=== PATIENT | male | born 1965 | race Caucasian/White ===

== ENCOUNTER → 2017-10-08 | Outpatient (CLI) | payer BC ==
[2017-10-08 07:29] LABS: HCT 41.3 % (39.0-53.0); HGB 13.9 gm/dL (13.0-17.5); MCH 30.4 pg (25.0-35.0); MCHC 33.6 g/dL (31.0-37.0); MCV 90.4 fL (80.0-100.0); Mean Platelet Volume 7.2; Platelet Count 244 k/uL (150-450); RBC 4.57 m/uL (4.30-5.90); RDW 12.7 % (11.5-15.5); WBC 5.4 k/uL (3.8-10.6)
[2017-10-08 09:29] LABS: ALT 36 U/L (21-72); AST 31 U/L (17-59); Alkaline Phosphatase 85 U/L (38-126); Anion Gap 8 mmol/L; Blood Urea Nitrogen 14 mg/dL (9-20); Calcium 8.9 mg/dL (8.4-10.2); Carbon Dioxide 27 mmol/L (22-30); Chloride 105 mmol/L (98-107); Cholesterol 180 mg/dL (<200); Glucose 113 mg/dL (74-99); HDL Cholesterol 51 mg/dL (40-60); LDL Cholesterol,Calculated 104 mg/dL (0-99); Potassium 3.9 mmol/L (3.5-5.1); Sodium 140 mmol/L (137-145); Total Bilirubin 0.9 mg/dL (0.2-1.3); Total Protein 6.7 g/dL (6.3-8.2); Triglycerides 123 mg/dL (<150)
[2017-10-08 09:58] LABS: Prostate Specific Antigen 6.85 ng/mL (0.00-4.00)
[2017-10-08 18:19] LABS: Hemoglobin A1C 5.5 % (4.0-6.0)
== END | disposition home or self-care (01) ==
LOC: LABWHC1 06:38
PROVIDERS: ATTEND Internal Medicine
DX: Z13.228 Encounter for screening for other metabolic disorders (principal); Z13.220 Encounter for screening for lipoid disorders; Z12.5 Encounter for screening for malignant neoplasm of prostate; Z13.0 Encounter for screening for diseases of the blood and blood-forming organs and certain disorders involving the immune mechanism; Z11.59 Encounter for screening for other viral diseases; Z13.1 Encounter for screening for diabetes mellitus; Z13.6 Encounter for screening for cardiovascular disorders
CPT/HCPCS: 36415; 80053; 80061; 83036; 84153; 84443; 85027; 86803

== ENCOUNTER → 2017-11-13 | Outpatient (CLI) | payer BC | END | disposition home or self-care (01) | LOC: LABWHC1 07:58 | PROVIDERS: ATTEND Internal Medicine | DX: R97.20 Elevated prostate specific antigen [PSA] (principal) | CPT/HCPCS: 36415; 84153 ==

== ENCOUNTER 2017-12-29 18:04 | Inpatient (IN) | payer BC ==
[2017-12-29] MEDS ORDERED: ACETAMINOPHEN IV (For NPO) 1,000 MG in EMPTY BAG 1 BAG IVPB STA (18:19)
--- NOTE | 2017-12-29 18:23 | ED ---
Fever HPI - General Stated Complaint: chills,post op infection Time Seen by Provider: 12/29/17 18:15 Source: patient, family, RN notes reviewed - History of Present Illness Initial Comments: This is a 52-year-old male who had a prostate biopsy done yesterday and approximately 12 locations who apparently had 2 episodes of chills earlier today but about one half hour prior to admission started having shakes chills without have a temperature 107. He does not feel well no overt nausea vomiting diarrhea or other symptoms he has had some hematuria but this is expected. He did receive Cipro an injection of antibiotic which at this time is unknown. No other modifying factors at this time he has no chest pain no cough no phlegm production MD Complaint: fever, malaise - Related Data Home Medications Medication Instructions Recorded Confirmed Multivitamins, Thera [Multivitamin 1 tab PO DAILY 12/29/17 12/29/17 (formulary)] Pravastatin Sodium [Pravachol] 20 mg PO HS 12/29/17 12/29/17 Allergies Allergy/AdvReac Type Severity Reaction Status Date / Time Sulfa (Sulfonamide AdvReac Rash/Hives Verified 12/29/17 18:51 Antibiotics) Review of Systems ROS Statement: Those systems with pertinent positive or pertinent negative responses have been documented in the HPI. ROS Other: All systems not noted in ROS Statement are negative. General Exam - General Exam Comments Initial Comments: This a well-developed well-nourished awake but lethargic male Limitations: physical limitation General appearance: alert, lethargic Head exam: Present: atraumatic, normocephalic, normal inspection Eye exam: Present: normal appearance, PERRL, EOMI. Absent: scleral icterus, conjunctival injection, periorbital swelling ENT exam: Present: mucous membranes dry Neck exam: Present: normal inspection. Absent: tenderness, meningismus, lymphadenopathy Respiratory exam: Present: normal lung sounds bilaterally. Absent: respiratory distress, wheezes, rales, rhonchi, stridor Cardiovascular Exam: Present: normal rhythm, tachycardia. Absent: systolic murmur, diastolic murmur, rubs, gallop, clicks GI/Abdominal exam: Present: soft, normal bowel sounds. Absent: distended, tenderness, guarding, rebound, rigid Rectal exam: Present: deferred Extremities exam: Present: normal inspection, full ROM, normal capillary refill. Absent: tenderness, pedal edema, joint swelling, calf tenderness Back exam: Present: normal inspection Neurological exam: Present: alert, oriented X3, CN II-XII intact Psychiatric exam: Present: normal affect, anxious Skin exam: Present: warm, dry, intact, pallor. Absent: rash Course Vital Signs 12/29/17 12/29/17 12/29/17 18:21 18:35 19:15 Temperature 107 F H 105.4 F H 104.0 F H Pulse Rate 160 H 158 H 122 H Respiratory 32 H 20 18 Rate Blood Pressure 127/70 140/70 139/69 O2 Sat by Pulse 90 L 96 96 Oximetry 12/29/17 12/29/17 19:54 20:39 Temperature 102.6 F H 101.5 F H Pulse Rate 110 H 112 H Respiratory 19 18 Rate Blood Pressure 130/70 117/69 O2 Sat by Pulse 98 98 Oximetry - Reevaluation(s) Reevaluation #1: 12/29/17 18:41 Patient is started to respond he feels somewhat better his temperature is down to 105 heart rate down to 149 he is more awake and alert. Reevaluation #2: 12/29/17 19:47 The patient continues to improve he states felt bloated x-rays nonspecific abdomen soft nontender Reevaluation #3: 12/29/17 21:12 Reevaluation patient is so much improved I discuss [employer] the patient family also with Dr. Whitaker. Patient will be admitted and continued on IV antibiotics and fluids. Reevaluation #4: 12/29/17 21:13 Repeat EKG shows a sinus tachycardia 109. We'll 140 QRS duration 116 QT since QTC 344/463 left exodeviation incomplete right bundle-branch block nonspecific anterior configuration Medical Decision Making - Lab Data Result diagrams: 12/29/17 18:25 12/29/17 18:25 Lab Results 12/29/17 12/29/17 12/29/17 Range/Units 18:25 18:25 18:25 WBC 3.2 L (3.8-10.6) k/uL RBC 4.47 (4.30-5.90) m/uL Hgb 13.8 (13.0-17.5) gm/dL Hct 41.3 (39.0-53.0) % MCV 92.5 (80.0-100.0) fL MCH 30.8 (25.0-35.0) pg MCHC 33.3 (31.0-37.0) g/dL RDW 14.2 (11.5-15.5) % Plt Count 180 (150-450) k/uL Neutrophils % (Manual) 71 % Band Neutrophils % 16 % Lymphocytes % (Manual) 13 % Neutrophils # (Manual) 2.70 (1.3-7.7) k/uL Lymphocytes # (Manual) 0.42 L (1.0-4.8) k/uL Nucleated RBCs 0 (0-0) /100 WBC Manual Slide Review Performed Hypochromasia Moderate Poikilocytosis Moderate PT (9.0-12.0) sec INR (<1.2) APTT (22.0-30.0) sec Sodium 137 (137-145) mmol/L Potassium 5.1 (3.5-5.1) mmol/L Chloride 103 (98-107) mmol/L Carbon Dioxide 18 L (22-30) mmol/L Anion Gap 16 mmol/L BUN 16 (9-20) mg/dL Creatinine 0.97 (0.66-1.25) mg/dL Est GFR (CKD-EPI)AfAm >90 (>60 ml/min/1.73 sqM) Est GFR (CKD-EPI)NonAf 89 (>60 ml/min/1.73 sqM) Glucose 154 H (74-99) mg/dL Plasma Lactic Acid Thiago (0.7-2.0) mmol/L Calcium 9.2 (8.4-10.2) mg/dL Magnesium 1.4 L (1.6-2.3) mg/dL Total Bilirubin 1.6 H (0.2-1.3) mg/dL AST 47 (17-59) U/L ALT 25 (21-72) U/L Alkaline Phosphatase 72 (38-126) U/L Total Creatine Kinase 324 H (55-170) U/L CK-MB (CK-2) 1.2 (0.0-2.4) ng/mL CK-MB (CK-2) Rel Index 0.4 Troponin I 0.017 (0.000-0.034) ng/mL Total Protein 7.0 (6.3-8.2) g/dL Albumin 4.1 (3.5-5.0) g/dL Urine Color Urine Appearance (Clear) Urine pH (5.0-8.0) Ur Specific Portal (1.001-1.035) Urine Protein (Negative) Urine Glucose (UA) (Negative) Urine Ketones (Negative) Urine Blood (Negative) Urine Nitrite (Negative) Urine Bilirubin (Negative) Urine Urobilinogen (<2.0) mg/dL Ur Leukocyte Esterase (Negative) Urine RBC (0-5) /hpf Urine WBC (0-5) /hpf Hyaline Casts (0-2) /lpf Urine Mucus (None) /hpf 12/29/17 12/29/17 12/29/17 Range/Units 18:25 18:25 19:49 WBC (3.8-10.6) k/uL RBC (4.30-5.90) m/uL Hgb (13.0-17.5) gm/dL Hct (39.0-53.0) % MCV (80.0-100.0) fL MCH (25.0-35.0) pg MCHC (31.0-37.0) g/dL RDW (11.5-15.5) % Plt Count (150-450) k/uL Neutrophils % (Manual) % Band Neutrophils % % Lymphocytes % (Manual) % Neutrophils # (Manual) (1.3-7.7) k/uL Lymphocytes # (Manual) (1.0-4.8) k/uL Nucleated RBCs (0-0) /100 WBC Manual Slide Review Hypochromasia Poikilocytosis PT 12.1 H (9.0-12.0) sec INR 1.3 H (<1.2) APTT 24.6 (22.0-30.0) sec Sodium (137-145) mmol/L Potassium (3.5-5.1) mmol/L Chloride (98-107) mmol/L Carbon Dioxide (22-30) mmol/L Anion Gap mmol/L BUN (9-20) mg/dL Creatinine (0.66-1.25) mg/dL Est GFR (CKD-EPI)AfAm (>60 ml/min/1.73 sqM) Est GFR (CKD-EPI)NonAf (>60 ml/min/1.73 sqM) Glucose (74-99) mg/dL Plasma Lactic Acid Thiago 5.9 H* (0.7-2.0) mmol/L Calcium (8.4-10.2) mg/dL Magnesium (1.6-2.3) mg/dL Total Bilirubin (0.2-1.3) mg/dL AST (17-59) U/L ALT (21-72) U/L Alkaline Phosphatase (38-126) U/L Total Creatine Kinase (55-170) U/L CK-MB (CK-2) (0.0-2.4) ng/mL CK-MB (CK-2) Rel Index Troponin I (0.000-0.034) ng/mL Total Protein (6.3-8.2) g/dL Albumin (3.5-5.0) g/dL Urine Color Yellow Urine Appearance Clear (Clear) Urine pH 5.0 (5.0-8.0) Ur Specific Portal 1.018 (1.001-1.035) Urine Protein 1+ H (Negative) Urine Glucose (UA) Trace H (Negative) Urine Ketones 1+ H (Negative) Urine Blood Large H (Negative) Urine Nitrite Negative (Negative) Urine Bilirubin Negative (Negative) Urine Urobilinogen <2.0 (<2.0) mg/dL Ur Leukocyte Esterase Negative (Negative) Urine RBC 87 H (0-5) /hpf Urine WBC 9 H (0-5) /hpf Hyaline Casts 1 (0-2) /lpf Urine Mucus Rare H (None) /hpf - EKG Data -: EKG Interpreted by Ga EKG shows normal: axis ( SD interval 96 QRS duration 96 QT since QTC 294/581 incomplete right bundle-branch block left anterior fascicular block nonspecific anterior changes) - Radiology Data Radiology results: report reviewed (I did review the imaging and report no acute findings.), image reviewed Critical Care Time Critical Care Time: Yes Critical Care Time: 39 minutes of critical care time which includes history physical labs multiple reevaluation the patient discussed with patient family regarding findings discussed with the admitting physician admission orders and documentation of the above. Disposition Clinical Impression: Sepsis, Dehydration, Tachycardia, Hypomagnesemia Disposition: ADMITTED IP TO THIS [facility] Condition: Stable Referrals: Alfredo Santiago MD [Primary Care Provider] - 1-2 days
[2017-12-29] MEDS: SODIUM CHLORIDE 0.9% 500 ML IV SCH ×3 (18:33→18:49)
[2017-12-29] MEDS ORDERED: ONDANSETRON 4 MG/2 ML VIAL IVP STA ×2 (18:42→22:26)
[2017-12-29 19:05] LABS: ALT 25 U/L (21-72); AST 47 U/L (17-59); Albumin 4.1 g/dL (3.5-5.0); Alkaline Phosphatase 72 U/L (38-126); Anion Gap 16 mmol/L; Blood Urea Nitrogen 16 mg/dL (9-20); Calcium 9.2 mg/dL (8.4-10.2); Carbon Dioxide 18 mmol/L (22-30); Chloride 103 mmol/L (98-107); Glucose 154 mg/dL (74-99); Magnesium 1.4 mg/dL (1.6-2.3); Sodium 137 mmol/L (137-145); Total Bilirubin 1.6 mg/dL (0.2-1.3)
[2017-12-29 19:06] LABS: Appearance,Urine Clear (Clear); Bilirubin,Urine Negative (Negative); Blood,Urine Large (Negative); Color,Urine Yellow; Glucose,Urine (UA) Trace (Negative); HCT 41.3 % (39.0-53.0); HGB 13.8 gm/dL (13.0-17.5); Hyaline Casts,Urine 1 /lpf (0-2); Hypochromasia Moderate; Ketones,Urine 1+ (Negative); Leukocyte Esterase,Urine Negative (Negative); MCH 30.8 pg (25.0-35.0); MCHC 33.3 g/dL (31.0-37.0); MCV 92.5 fL (80.0-100.0); Mean Platelet Volume 9.3; Mucus,Urine Rare /hpf; Nitrite,Urine Negative (Negative); Platelet Count 180 k/uL (150-450); Poikilocytosis Moderate; Potassium 5.1 mmol/L (3.5-5.1); Protein,Urine 1+ (Negative); RBC 4.47 m/uL (4.30-5.90); RBC,Urine 87 /hpf (0-5); RDW 14.2 % (11.5-15.5); Specific Gravity,Urine 1.018 (1.001-1.035); Urobilinogen,Urine <2.0 mg/dL (<2.0); WBC 3.2 k/uL (3.8-10.6); WBC,Urine 9 /hpf (0-5)
--- NOTE | 2017-12-29 19:18 | XR ---
EXAMINATION: XR chest 1V portable DATE AND TIME: 12/29/2017 7:07 PM CLINICAL INDICATION: Fever TECHNIQUE: Portable AP upright COMPARISON: 06/19/2013 FINDINGS: The lungs are clear. The pleural spaces are negative. The cardiac silhouette is not enlarged. The remainder of the mediastinal silhouette is unremarkable. The skeletal structures and soft tissues are negative for acute findings. IMPRESSION: NO ACUTE PROCESS.
[2017-12-29 19:21] LABS: Creatine Kinase MB 1.2 ng/mL (0.0-2.4); Troponin I 0.017 ng/mL (0.000-0.034)
--- NOTE | 2017-12-29 19:52 | XR ---
EXAMINATION TYPE: XR abdomen 3V DATE OF EXAM: 12/29/2017 COMPARISON: NONE HISTORY: Prostate surgery yesterday with pain, abdominal distention and fever, chills TECHNIQUE: Upright abdomen and 2 supine views of the abdomen and pelvis FINDINGS: The visualized lung bases and pleural spaces are negative. There is no pneumoperitoneum or bowel obstruction. No definite acute soft tissue or skeletal findings. IMPRESSION: No acute radiographic process.
[2017-12-29 20:04] LABS: Band Neutrophils % 16 %; Lymphocytes # (M) 0.42 k/uL (1.0-4.8); Neutrophils % (M) 71 %; Nucleated Red Blood Cells 0 /100 WBC (0-0); Total Cells Counted 100
[2017-12-29 20:15] LABS: INR 1.3 (<1.2); Partial Thromboplastin Time 24.6 sec (22.0-30.0); Prothrombin Time 12.1 sec (9.0-12.0)
[2017-12-29] MEDS ORDERED: MAGNESIUM SULFATE-D5W PMX 1 GM in DEXTROSE/WATER 1 100ML.BAG IVPB ONE (20:56)
[2017-12-29] MEDS ORDERED: NALOXONE 0.4 MG/ML 1 ML VIAL IV PRN (21:15)
--- NOTE | 2017-12-29 21:30 | ED ---
Medical Decision Making - Lab Data Result diagrams: 12/29/17 18:25 12/29/17 18:25 Lab Results 12/29/17 12/29/17 12/29/17 Range/Units 18:25 18:25 18:25 WBC 3.2 L (3.8-10.6) k/uL RBC 4.47 (4.30-5.90) m/uL Hgb 13.8 (13.0-17.5) gm/dL Hct 41.3 (39.0-53.0) % MCV 92.5 (80.0-100.0) fL MCH 30.8 (25.0-35.0) pg MCHC 33.3 (31.0-37.0) g/dL RDW 14.2 (11.5-15.5) % Plt Count 180 (150-450) k/uL Neutrophils % (Manual) 71 % Band Neutrophils % 16 % Lymphocytes % (Manual) 13 % Neutrophils # (Manual) 2.70 (1.3-7.7) k/uL Lymphocytes # (Manual) 0.42 L (1.0-4.8) k/uL Nucleated RBCs 0 (0-0) /100 WBC Manual Slide Review Performed Hypochromasia Moderate Poikilocytosis Moderate PT (9.0-12.0) sec INR (<1.2) APTT (22.0-30.0) sec Sodium 137 (137-145) mmol/L Potassium 5.1 (3.5-5.1) mmol/L Chloride 103 (98-107) mmol/L Carbon Dioxide 18 L (22-30) mmol/L Anion Gap 16 mmol/L BUN 16 (9-20) mg/dL Creatinine 0.97 (0.66-1.25) mg/dL Est GFR (CKD-EPI)AfAm >90 (>60 ml/min/1.73 sqM) Est GFR (CKD-EPI)NonAf 89 (>60 ml/min/1.73 sqM) Glucose 154 H (74-99) mg/dL Plasma Lactic Acid Thiago (0.7-2.0) mmol/L Calcium 9.2 (8.4-10.2) mg/dL Magnesium 1.4 L (1.6-2.3) mg/dL Total Bilirubin 1.6 H (0.2-1.3) mg/dL AST 47 (17-59) U/L ALT 25 (21-72) U/L Alkaline Phosphatase 72 (38-126) U/L Total Creatine Kinase 324 H (55-170) U/L CK-MB (CK-2) 1.2 (0.0-2.4) ng/mL CK-MB (CK-2) Rel Index 0.4 Troponin I 0.017 (0.000-0.034) ng/mL Total Protein 7.0 (6.3-8.2) g/dL Albumin 4.1 (3.5-5.0) g/dL Urine Color Urine Appearance (Clear) Urine pH (5.0-8.0) Ur Specific Griffin (1.001-1.035) Urine Protein (Negative) Urine Glucose (UA) (Negative) Urine Ketones (Negative) Urine Blood (Negative) Urine Nitrite (Negative) Urine Bilirubin (Negative) Urine Urobilinogen (<2.0) mg/dL Ur Leukocyte Esterase (Negative) Urine RBC (0-5) /hpf Urine WBC (0-5) /hpf Hyaline Casts (0-2) /lpf Urine Mucus (None) /hpf 12/29/17 12/29/17 12/29/17 Range/Units 18:25 18:25 19:49 WBC (3.8-10.6) k/uL RBC (4.30-5.90) m/uL Hgb (13.0-17.5) gm/dL Hct (39.0-53.0) % MCV (80.0-100.0) fL MCH (25.0-35.0) pg MCHC (31.0-37.0) g/dL RDW (11.5-15.5) % Plt Count (150-450) k/uL Neutrophils % (Manual) % Band Neutrophils % % Lymphocytes % (Manual) % Neutrophils # (Manual) (1.3-7.7) k/uL Lymphocytes # (Manual) (1.0-4.8) k/uL Nucleated RBCs (0-0) /100 WBC Manual Slide Review Hypochromasia Poikilocytosis PT 12.1 H (9.0-12.0) sec INR 1.3 H (<1.2) APTT 24.6 (22.0-30.0) sec Sodium (137-145) mmol/L Potassium (3.5-5.1) mmol/L Chloride (98-107) mmol/L Carbon Dioxide (22-30) mmol/L Anion Gap mmol/L BUN (9-20) mg/dL Creatinine (0.66-1.25) mg/dL Est GFR (CKD-EPI)AfAm (>60 ml/min/1.73 sqM) Est GFR (CKD-EPI)NonAf (>60 ml/min/1.73 sqM) Glucose (74-99) mg/dL Plasma Lactic Acid Thiago 5.9 H* (0.7-2.0) mmol/L Calcium (8.4-10.2) mg/dL Magnesium (1.6-2.3) mg/dL Total Bilirubin (0.2-1.3) mg/dL AST (17-59) U/L ALT (21-72) U/L Alkaline Phosphatase (38-126) U/L Total Creatine Kinase (55-170) U/L CK-MB (CK-2) (0.0-2.4) ng/mL CK-MB (CK-2) Rel Index Troponin I (0.000-0.034) ng/mL Total Protein (6.3-8.2) g/dL Albumin (3.5-5.0) g/dL Urine Color Yellow Urine Appearance Clear (Clear) Urine pH 5.0 (5.0-8.0) Ur Specific Griffin 1.018 (1.001-1.035) Urine Protein 1+ H (Negative) Urine Glucose (UA) Trace H (Negative) Urine Ketones 1+ H (Negative) Urine Blood Large H (Negative) Urine Nitrite Negative (Negative) Urine Bilirubin Negative (Negative) Urine Urobilinogen <2.0 (<2.0) mg/dL Ur Leukocyte Esterase Negative (Negative) Urine RBC 87 H (0-5) /hpf Urine WBC 9 H (0-5) /hpf Hyaline Casts 1 (0-2) /lpf Urine Mucus Rare H (None) /hpf Disposition Clinical Impression: Sepsis, Dehydration, Tachycardia, Hypomagnesemia, Lactic acidosis, H/O prostate biopsy Disposition: ADMITTED IP TO THIS HOSP Condition: Stable Referrals: Alfredo Santiago MD [Primary Care Provider] - 1-2 days
[2017-12-29] MEDS: SODIUM CHLORIDE 0.9% 1,000 ML IV SCH (21:35)
[2017-12-29 23:20] VITALS: BMI 31.9
[2017-12-30] MEDS: ACETAMINOPHEN TAB 500 MG TAB PO SCH ×4 (04:26→17:13)
[2017-12-30 06:45] LABS: ALT 34 U/L (21-72); AST 71 U/L (17-59); Albumin 2.9 g/dL (3.5-5.0); Alkaline Phosphatase 57 U/L (38-126); Anion Gap 8 mmol/L; Blood Urea Nitrogen 17 mg/dL (9-20); Calcium 7.8 mg/dL (8.4-10.2); Carbon Dioxide 23 mmol/L (22-30); Chloride 109 mmol/L (98-107); Glucose 125 mg/dL (74-99); Magnesium 1.7 mg/dL (1.6-2.3); Potassium 3.9 mmol/L (3.5-5.1); Sodium 140 mmol/L (137-145); Total Bilirubin 1.5 mg/dL (0.2-1.3); Total Protein 5.6 g/dL (6.3-8.2)
[2017-12-30 06:47] LABS: Basophils % (A) 0 %; Eosinophils % (A) 0 %; HCT 38.5 % (39.0-53.0); HGB 12.7 gm/dL (13.0-17.5); Lymphocytes # (A) 0.4 k/uL (1.0-4.8); Lymphocytes % (A) 4 %; MCH 30.8 pg (25.0-35.0); MCHC 33.1 g/dL (31.0-37.0); MCV 93.1 fL (80.0-100.0); Mean Platelet Volume 7.3; Monocytes # (A) 0.2 k/uL (0-1.0); Monocytes % (A) 2 %; Neutrophils # (A) 8.9 k/uL (1.3-7.7); Neutrophils % (A) 93 %; Platelet Count 113 k/uL (150-450); RBC 4.13 m/uL (4.30-5.90); RDW 13.1 % (11.5-15.5); WBC 9.5 k/uL (3.8-10.6)
--- NOTE | 2017-12-30 07:20 | P.GSHP ---
History of Present Illness H&P Date: 12/30/17 Patient is a 52-year-old gentleman who recently was seen in the office with a persistently elevated PSA. He underwent a transrectal ultrasound with biopsies 12/28/2017. He was covered with preoperative gentamicin and Cipro as well as postoperative ciprofloxacin. He developed fever and chills and out of the emergency room. He had a markedly elevated temperature. He was acidotic. He was resuscitated by Dr. Gonsales with IV fluids. He is given IV ceftriaxone. He is feeling much better this morning. Blood cultures are growing a gram- negative bacilli. He has no other previous urologic problems. - Constitutional Constitutional: Reports chills, Reports fever, Reports lethargy Past Medical History Past Medical History: Hyperlipidemia, Hypertension, Prostate Disorder History of Any Multi-Drug Resistant Organisms: None Reported Past Surgical History: Ear Surgery, Hernia Repair Past Psychological History: No Psychological Hx Reported Smoking Status: Never smoker Past Alcohol Use History: None Reported Past Drug Use History: None Reported - Past Family History Mother Family Medical History: Hypertension Father Family Medical History: Hypertension Medications and Allergies Home Medications Medication Instructions Recorded Confirmed Type Multivitamins, Thera [Multivitamin 1 tab PO DAILY 12/29/17 12/29/17 History (formulary)] Pravastatin Sodium [Pravachol] 20 mg PO HS 12/29/17 12/29/17 History Allergies Allergy/AdvReac Type Severity Reaction Status Date / Time Sulfa (Sulfonamide AdvReac Rash/Hives Verified 12/29/17 18:51 Antibiotics) Surgical - Exam Vital Signs Temp Pulse Resp BP Pulse Ox 107 F H 160 H 32 H 127/70 90 L 12/29/17 18:21 12/29/17 18:21 12/29/17 18:21 12/29/17 18:21 12/29/17 18:21 - General The patient appears washed out due to the recent febrile illness well developed, well nourished, other - Eyes PERRL - ENT no hearing loss - Neck trachea midline - Respiratory normal expansion, normal respiratory effort - Cardiovascular Rhythm: regular - Abdomen Abdomen: soft, non tender - Neurologic normal coordination, normal sensation - Musculoskeletal normal gait, normal posture - Psychiatric oriented to time, oriented to person, oriented to place, speech is normal, memory intact Results - Labs 12/30/17 05:59 12/30/17 05:59 Abnormal Lab Results - Last 24 Hours (Table) 12/29/17 12/29/17 12/29/17 Range/Units 18:25 18:25 18:25 WBC 3.2 L (3.8-10.6) k/uL RBC (4.30-5.90) m/uL Hgb (13.0-17.5) gm/dL Hct (39.0-53.0) % Plt Count (150-450) k/uL Neutrophils # (1.3-7.7) k/uL Lymphocytes # (1.0-4.8) k/uL Lymphocytes # (Manual) 0.42 L (1.0-4.8) k/uL PT (9.0-12.0) sec INR (<1.2) Chloride (98-107) mmol/L Carbon Dioxide 18 L (22-30) mmol/L Glucose 154 H (74-99) mg/dL Plasma Lactic Acid Thiago (0.7-2.0) mmol/L Calcium (8.4-10.2) mg/dL Magnesium 1.4 L (1.6-2.3) mg/dL Total Bilirubin 1.6 H (0.2-1.3) mg/dL AST (17-59) U/L Total Creatine Kinase 324 H (55-170) U/L Total Protein (6.3-8.2) g/dL Albumin (3.5-5.0) g/dL Urine Protein (Negative) Urine Glucose (UA) (Negative) Urine Ketones (Negative) Urine Blood (Negative) Urine RBC (0-5) /hpf Urine WBC (0-5) /hpf Urine Mucus (None) /hpf 12/29/17 12/29/17 12/29/17 Range/Units 18:25 18:25 19:49 WBC (3.8-10.6) k/uL RBC (4.30-5.90) m/uL Hgb (13.0-17.5) gm/dL Hct (39.0-53.0) % Plt Count (150-450) k/uL Neutrophils # (1.3-7.7) k/uL Lymphocytes # (1.0-4.8) k/uL Lymphocytes # (Manual) (1.0-4.8) k/uL PT 12.1 H (9.0-12.0) sec INR 1.3 H (<1.2) Chloride (98-107) mmol/L Carbon Dioxide (22-30) mmol/L Glucose (74-99) mg/dL Plasma Lactic Acid Thiago 5.9 H* (0.7-2.0) mmol/L Calcium (8.4-10.2) mg/dL Magnesium (1.6-2.3) mg/dL Total Bilirubin (0.2-1.3) mg/dL AST (17-59) U/L Total Creatine Kinase (55-170) U/L Total Protein (6.3-8.2) g/dL Albumin (3.5-5.0) g/dL Urine Protein 1+ H (Negative) Urine Glucose (UA) Trace H (Negative) Urine Ketones 1+ H (Negative) Urine Blood Large H (Negative) Urine RBC 87 H (0-5) /hpf Urine WBC 9 H (0-5) /hpf Urine Mucus Rare H (None) /hpf 12/29/17 12/30/17 12/30/17 Range/Units 22:04 05:59 05:59 WBC (3.8-10.6) k/uL RBC 4.13 L (4.30-5.90) m/uL Hgb 12.7 L (13.0-17.5) gm/dL Hct 38.5 L (39.0-53.0) % Plt Count 113 L (150-450) k/uL Neutrophils # 8.9 H (1.3-7.7) k/uL Lymphocytes # 0.4 L (1.0-4.8) k/uL Lymphocytes # (Manual) (1.0-4.8) k/uL PT (9.0-12.0) sec INR (<1.2) Chloride 109 H (98-107) mmol/L Carbon Dioxide (22-30) mmol/L Glucose 125 H (74-99) mg/dL Plasma Lactic Acid Thiago 2.6 H* (0.7-2.0) mmol/L Calcium 7.8 L (8.4-10.2) mg/dL Magnesium (1.6-2.3) mg/dL Total Bilirubin 1.5 H (0.2-1.3) mg/dL AST 71 H (17-59) U/L Total Creatine Kinase (55-170) U/L Total Protein 5.6 L (6.3-8.2) g/dL Albumin 2.9 L (3.5-5.0) g/dL Urine Protein (Negative) Urine Glucose (UA) (Negative) Urine Ketones (Negative) Urine Blood (Negative) Urine RBC (0-5) /hpf Urine WBC (0-5) /hpf Urine Mucus (None) /hpf Microbiology - Last 24 Hours (Table) 12/29/17 18:25 Blood Culture Gram Stain - Preliminary Blood 12/29/17 18:25 Blood Culture - Final Blood 12/29/17 18:25 Urine Culture - Preliminary Urine,Clean Catch Diabetes panel 12/29/17 12/30/17 Range/Units 18:25 05:59 Sodium 137 140 (137-145) mmol/L Potassium 5.1 3.9 (3.5-5.1) mmol/L Chloride 103 109 H (98-107) mmol/L Carbon Dioxide 18 L 23 (22-30) mmol/L BUN 16 17 (9-20) mg/dL Creatinine 0.97 0.96 (0.66-1.25) mg/dL Glucose 154 H 125 H (74-99) mg/dL Calcium 9.2 7.8 L (8.4-10.2) mg/dL AST 47 71 H (17-59) U/L ALT 25 34 (21-72) U/L Alkaline Phosphatase 72 57 (38-126) U/L Total Protein 7.0 5.6 L (6.3-8.2) g/dL Albumin 4.1 2.9 L (3.5-5.0) g/dL Calcium panel 12/29/17 12/30/17 Range/Units 18:25 05:59 Calcium 9.2 7.8 L (8.4-10.2) mg/dL Albumin 4.1 2.9 L (3.5-5.0) g/dL Pituitary panel 12/29/17 12/30/17 Range/Units 18:25 05:59 Sodium 137 140 (137-145) mmol/L Potassium 5.1 3.9 (3.5-5.1) mmol/L Chloride 103 109 H (98-107) mmol/L Carbon Dioxide 18 L 23 (22-30) mmol/L BUN 16 17 (9-20) mg/dL Creatinine 0.97 0.96 (0.66-1.25) mg/dL Glucose 154 H 125 H (74-99) mg/dL Calcium 9.2 7.8 L (8.4-10.2) mg/dL Adrenal panel 12/29/17 12/30/17 Range/Units 18:25 05:59 Sodium 137 140 (137-145) mmol/L Potassium 5.1 3.9 (3.5-5.1) mmol/L Chloride 103 109 H (98-107) mmol/L Carbon Dioxide 18 L 23 (22-30) mmol/L BUN 16 17 (9-20) mg/dL Creatinine 0.97 0.96 (0.66-1.25) mg/dL Glucose 154 H 125 H (74-99) mg/dL Calcium 9.2 7.8 L (8.4-10.2) mg/dL Total Bilirubin 1.6 H 1.5 H (0.2-1.3) mg/dL AST 47 71 H (17-59) U/L ALT 25 34 (21-72) U/L Alkaline Phosphatase 72 57 (38-126) U/L Total Protein 7.0 5.6 L (6.3-8.2) g/dL Albumin 4.1 2.9 L (3.5-5.0) g/dL Assessment and Plan Assessment: Impression: Urinate tract infection with sepsis due to prostate biopsy. Elevated PSA. Recommendations: The patient will continue with IV antibiotics and IV fluids. Hopefully in the next 24 hours will have a identification of the bacteria with sensitivities so that oral antibiotics can be instituted and he can be discharged home.
[2017-12-30] MEDS: FAMOTIDINE 20 MG TAB PO SCH ×2 (08:19→21:25)
[2017-12-30] MEDS: SODIUM CHLORIDE 0.9% 1,000 ML IV SCH ×2 (08:20→16:15)
[2017-12-30] MEDS: MULTIVITAMINS, THERA 1 EACH TAB PO SCH (11:55)
--- NOTE | 2017-12-30 12:56 | CONS ---
CONSULTATION Mr. Rajput is a 52-year-old gentleman who presented to the emergency room yesterday in the evening. The patient on Thursday 2 days previous underwent transrectal ultrasound of the prostate for elevated PSA. He was apparently treated with preop gentamicin and did receive ciprofloxacin postoperatively, but yesterday developed chills and generalized weakness, some nausea, no vomiting. Somewhat of a headache and presented to the emergency room with a temperature. PAST MEDICAL HISTORY: Besides the recently elevated PSA values, he has had hyperlipidemia and hypertension. He has had a previous ear surgery and hernia repair in the past. HOME MEDICATIONS: Previous home medications include his pravastatin for cholesterol 20 mg and a multiple vitamin. ALLERGIES: He does have history of allergies to SULFA with rash and hives. REVIEW OF SYSTEMS: As mentioned in history of present illness. There is no syncopal type episodes. No visual disturbances. No actual vomiting. He denied actually any marked dysuria or hematuria. No actual diarrhea. He denies any skin rash or specific joint pain or swelling. PAST FAMILY MEDICAL HISTORY: Past medical history is positive for hypertension in both his parents. SOCIAL HISTORY: Social history is negative for smoking or any excessive alcohol usage. He does live locally with his in the area with his children. PHYSICAL EXAMINATION: On physical examination, he is somewhat fatigued. Temperature on presentation to the emergency room was as high as 101.6. It has come down presently to 98.4. Blood pressure on initial presentation was 127/70. His respiratory rate on presentation was 32. Temperatures were recorded very high up to 105 and 107, but then did come down gradually through the day. Percent saturation was initially at 90, but did improve also up to 98. Blood pressures did subsequently decreased down into the 90s. Present vital signs reveal a temp 98.4, pulse of 80, respirations 16, and blood pressure 93/65 , and he is 96% saturated on room air. HEENT is unremarkable. Neck is supple. There is no adenopathy or thyromegaly detected. Lungs were clear to auscultation. Heart tones were regular without murmurs or rubs. No chest wall tenderness. No skin rashes. Abdomen is mildly obese, but soft and nontender without rebound, guarding, or masses. Rectal exam was deferred at this time. Extremities revealed no edema. NEUROLOGIC EXAM: He is somewhat tired, but alert and oriented. Cranial nerves intact. No focal weakness noted. LABORATORY TESTING: Laboratory testing on presentation revealed a low white count of 3.2. This is increased up to 9000, hemoglobin was 13.8, repeat 12.7, platelet count initially of 180, repeat 113. Initial venous lactic acid level was 5.9, which decreased down to 2.6. Sodium was 137, potassium 5.1, that has changed to 140 and 3.9 for potassium. CO2 content was initially 18, has risen to 23. Blood sugar initial 154, decreased down to 125. AST was normal, but then repeat value of 71, bilirubin of 1.6, calcium initially 9.2. His CK also was elevated at 324, but troponin was normal at 0.017. His urine did show a large amount of blood and 9 white cells, 87 RBCs, leukocyte esterase was negative. His blood cultures are now positive for gram-negative rods, further ID to follow. The patient did have a chest x-ray and abdominal series, which were unremarkable. OVERALL IMPRESSION BEING: Acute gram-negative sepsis related to recent prostate biopsy with underlying history of elevated PSA values as outpatient along with history of hypertension and history of hyperlipidemia. PLAN: At this point, continue with aggressive IV fluids, IV antibiotics have been initiated in the ER. We will wait for final identification and sensitivities on his urine cultures. MMODL / IJN: [id number] / YARY
--- NOTE | 2017-12-30 15:24 | ED ---
Medical Decision Making - Medical Decision Making This is an addendum from the patient was seen by me last evening. The time of evaluation for sepsis was 1999. Patient was given 2000 mL of normal saline based on ideal body weight 68 kg. Evaluation revealed the patient was improved with decreased temperature decreased heart rate ultimately the lactic acid did improve. Patient had already been given IV fluids as well as IV antibiotics. - Lab Data Result diagrams: 12/30/17 05:59 12/30/17 05:59 Lab Results 12/29/17 12/29/17 12/29/17 Range/Units 18:25 18:25 18:25 WBC 3.2 L (3.8-10.6) k/uL RBC 4.47 (4.30-5.90) m/uL Hgb 13.8 (13.0-17.5) gm/dL Hct 41.3 (39.0-53.0) % MCV 92.5 (80.0-100.0) fL MCH 30.8 (25.0-35.0) pg MCHC 33.3 (31.0-37.0) g/dL RDW 14.2 (11.5-15.5) % Plt Count 180 (150-450) k/uL Neutrophils % (Manual) 71 % Band Neutrophils % 16 % Lymphocytes % (Manual) 13 % Neutrophils # (Manual) 2.70 (1.3-7.7) k/uL Lymphocytes # (Manual) 0.42 L (1.0-4.8) k/uL Nucleated RBCs 0 (0-0) /100 WBC Manual Slide Review Performed Hypochromasia Moderate Poikilocytosis Moderate PT (9.0-12.0) sec INR (<1.2) APTT (22.0-30.0) sec Sodium 137 (137-145) mmol/L Potassium 5.1 (3.5-5.1) mmol/L Chloride 103 (98-107) mmol/L Carbon Dioxide 18 L (22-30) mmol/L Anion Gap 16 mmol/L BUN 16 (9-20) mg/dL Creatinine 0.97 (0.66-1.25) mg/dL Est GFR (CKD-EPI)AfAm >90 (>60 ml/min/1.73 sqM) Est GFR (CKD-EPI)NonAf 89 (>60 ml/min/1.73 sqM) Glucose 154 H (74-99) mg/dL Lactic Ac Sepsis Rflx Plasma Lactic Acid [place] (0.7-2.0) mmol/L Calcium 9.2 (8.4-10.2) mg/dL Magnesium 1.4 L (1.6-2.3) mg/dL Total Bilirubin 1.6 H (0.2-1.3) mg/dL AST 47 (17-59) U/L ALT 25 (21-72) U/L Alkaline Phosphatase 72 (38-126) U/L Total Creatine Kinase 324 H (55-170) U/L CK-MB (CK-2) 1.2 (0.0-2.4) ng/mL CK-MB (CK-2) Rel Index 0.4 Troponin I 0.017 (0.000-0.034) ng/mL Total Protein 7.0 (6.3-8.2) g/dL Albumin 4.1 (3.5-5.0) g/dL Urine Color Urine Appearance (Clear) Urine pH (5.0-8.0) Ur Specific [place] (1.001-1.035) Urine Protein (Negative) Urine Glucose (UA) (Negative) Urine Ketones (Negative) Urine Blood (Negative) Urine Nitrite (Negative) Urine Bilirubin (Negative) Urine Urobilinogen (<2.0) mg/dL Ur Leukocyte Esterase (Negative) Urine RBC (0-5) /hpf Urine WBC (0-5) /hpf Hyaline Casts (0-2) /lpf Urine Mucus (None) /hpf 12/29/17 12/29/17 12/29/17 Range/Units 18:25 18:25 19:05 WBC (3.8-10.6) k/uL RBC (4.30-5.90) m/uL Hgb (13.0-17.5) gm/dL Hct (39.0-53.0) % MCV (80.0-100.0) fL MCH (25.0-35.0) pg MCHC (31.0-37.0) g/dL RDW (11.5-15.5) % Plt Count (150-450) k/uL Neutrophils % (Manual) % Band Neutrophils % % Lymphocytes % (Manual) % Neutrophils # (Manual) (1.3-7.7) k/uL Lymphocytes # (Manual) (1.0-4.8) k/uL Nucleated RBCs (0-0) /100 WBC Manual Slide Review Hypochromasia Poikilocytosis PT (9.0-12.0) sec INR (<1.2) APTT (22.0-30.0) sec Sodium (137-145) mmol/L Potassium (3.5-5.1) mmol/L Chloride (98-107) mmol/L Carbon Dioxide (22-30) mmol/L Anion Gap mmol/L BUN (9-20) mg/dL Creatinine (0.66-1.25) mg/dL Est GFR (CKD-EPI)AfAm (>60 ml/min/1.73 sqM) Est GFR (CKD-EPI)NonAf (>60 ml/min/1.73 sqM) Glucose (74-99) mg/dL Lactic Ac Sepsis Rflx Y Plasma Lactic Acid [place] 5.9 H* (0.7-2.0) mmol/L Calcium (8.4-10.2) mg/dL Magnesium (1.6-2.3) mg/dL Total Bilirubin (0.2-1.3) mg/dL AST (17-59) U/L ALT (21-72) U/L Alkaline Phosphatase (38-126) U/L Total Creatine Kinase (55-170) U/L CK-MB (CK-2) (0.0-2.4) ng/mL CK-MB (CK-2) Rel Index Troponin I (0.000-0.034) ng/mL Total Protein (6.3-8.2) g/dL Albumin (3.5-5.0) g/dL Urine Color Yellow Urine Appearance Clear (Clear) Urine pH 5.0 (5.0-8.0) Ur Specific [place] 1.018 (1.001-1.035) Urine Protein 1+ H (Negative) Urine Glucose (UA) Trace H (Negative) Urine Ketones 1+ H (Negative) Urine Blood Large H (Negative) Urine Nitrite Negative (Negative) Urine Bilirubin Negative (Negative) Urine Urobilinogen <2.0 (<2.0) mg/dL Ur Leukocyte Esterase Negative (Negative) Urine RBC 87 H (0-5) /hpf Urine WBC 9 H (0-5) /hpf Hyaline Casts 1 (0-2) /lpf Urine Mucus Rare H (None) /hpf 12/29/17 Range/Units 19:49 WBC (3.8-10.6) k/uL RBC (4.30-5.90) m/uL Hgb (13.0-17.5) gm/dL Hct (39.0-53.0) % MCV (80.0-100.0) fL MCH (25.0-35.0) pg MCHC (31.0-37.0) g/dL RDW (11.5-15.5) % Plt Count (150-450) k/uL Neutrophils % (Manual) % Band Neutrophils % % Lymphocytes % (Manual) % Neutrophils # (Manual) (1.3-7.7) k/uL Lymphocytes # (Manual) (1.0-4.8) k/uL Nucleated RBCs (0-0) /100 WBC Manual Slide Review Hypochromasia Poikilocytosis PT 12.1 H (9.0-12.0) sec INR 1.3 H (<1.2) APTT 24.6 (22.0-30.0) sec Sodium (137-145) mmol/L Potassium (3.5-5.1) mmol/L Chloride (98-107) mmol/L Carbon Dioxide (22-30) mmol/L Anion Gap mmol/L BUN (9-20) mg/dL Creatinine (0.66-1.25) mg/dL Est GFR (CKD-EPI)AfAm (>60 ml/min/1.73 sqM) Est GFR (CKD-EPI)NonAf (>60 ml/min/1.73 sqM) Glucose (74-99) mg/dL Lactic Ac Sepsis Rflx Plasma Lactic Acid [place] (0.7-2.0) mmol/L Calcium (8.4-10.2) mg/dL Magnesium (1.6-2.3) mg/dL Total Bilirubin (0.2-1.3) mg/dL AST (17-59) U/L ALT (21-72) U/L Alkaline Phosphatase (38-126) U/L Total Creatine Kinase (55-170) U/L CK-MB (CK-2) (0.0-2.4) ng/mL CK-MB (CK-2) Rel Index Troponin I (0.000-0.034) ng/mL Total Protein (6.3-8.2) g/dL Albumin (3.5-5.0) g/dL Urine Color Urine Appearance (Clear) Urine pH (5.0-8.0) Ur Specific [place] (1.001-1.035) Urine Protein (Negative) Urine Glucose (UA) (Negative) Urine Ketones (Negative) Urine Blood (Negative) Urine Nitrite (Negative) Urine Bilirubin (Negative) Urine Urobilinogen (<2.0) mg/dL Ur Leukocyte Esterase (Negative) Urine RBC (0-5) /hpf Urine WBC (0-5) /hpf Hyaline Casts (0-2) /lpf Urine Mucus (None) /hpf Disposition Clinical Impression: Sepsis, Dehydration, Tachycardia, Hypomagnesemia, Lactic acidosis, H/O prostate biopsy Disposition: ADMITTED IP TO THIS HOSP Condition: Stable Procedures - Sepsis Sepsis Focused Exam #1 Sepsis Focused Exam Date: 12/29/17 Sepsis Focused Exam Time: 20:00 Sepsis Focused Exam Complete: Yes Vital Signs & RN Notes Reviewed: Yes Capillary Refill: < 2 Seconds: Fingers, Toes Peripheral Pulses: Normal: Radial (R), Radial (L) Skin Color: Pallor Respiratory Exam: normal lung sounds Cardiovascular Exam: tachycardia
[2017-12-30] MEDS: IBUPROFEN 400 MG TAB PO PRN (18:44)
[2017-12-30] MEDS ORDERED: PRAVASTATIN SODIUM 20 MG TAB PO SCH (21:00)
[2017-12-31] MEDS: ACETAMINOPHEN TAB 500 MG TAB PO SCH ×4 (00:03→16:37)
[2017-12-31 06:37] LABS: Basophils % (A) 0 %; Eosinophils % (A) 0 %; HCT 36.9 % (39.0-53.0); Lymphocytes # (A) 0.8 k/uL (1.0-4.8); Lymphocytes % (A) 8 %; MCH 30.5 pg (25.0-35.0); MCHC 32.4 g/dL (31.0-37.0); MCV 94.2 fL (80.0-100.0); Mean Platelet Volume 7.6; Monocytes # (A) 0.3 k/uL (0-1.0); Monocytes % (A) 3 %; Neutrophils # (A) 9.1 k/uL (1.3-7.7); Neutrophils % (A) 89 %; RBC 3.92 m/uL (4.30-5.90); RDW 13.3 % (11.5-15.5); WBC 10.3 k/uL (3.8-10.6)
--- NOTE | 2017-12-31 06:44 | P.PN ---
Subjective Progress Note Date: 12/31/17 The patient is in the hospital post-prosthetic biopsy secondary sepsis due to the biopsy, urinary tract infection with sepsis. Ulcers are pending. Cultures are growing gram-negative robert. Once I get the cultures back he can be placed on appropriate oral antibiotics and discharged home. His vital signs are stable is afebrile is feeling much better. Biopsy reports are pending. Objective - Vital Signs Vital signs: Vital Signs Temp 97.5 F L 12/31/17 04:00 Pulse 87 12/31/17 04:00 Resp 18 12/31/17 04:00 BP 124/75 12/31/17 04:00 Pulse Ox 96 12/31/17 00:00 Intake & Output 12/30/17 12/30/17 12/31/17 06:59 18:59 06:59 Intake Total 700 240 450 Output Total 250 Balance 450 240 450 Weight 104.5 kg 106.8 kg Intake: Intake, IV Titration 700 Amount Sodium Chloride 0.9% 1, 700 000 ml @ 100 mls/hr IV . Q10H [facility] Rx#:[id number] Oral 240 450 Output: Urine 250 Other: Voiding Method Urinal Urinal # Voids 1 1 # Bowel Movements 2 - Labs CBC & Chem 7: 12/31/17 05:32 12/30/17 05:59 Labs: Abnormal Lab Results - Last 24 Hours (Table) 12/30/17 12/30/17 12/30/17 Range/Units 05:59 05:59 06:51 RBC 4.13 L (4.30-5.90) m/uL Hgb 12.7 L (13.0-17.5) gm/dL Hct 38.5 L (39.0-53.0) % Plt Count 113 L (150-450) k/uL Neutrophils # 8.9 H (1.3-7.7) k/uL Lymphocytes # 0.4 L (1.0-4.8) k/uL Chloride 109 H (98-107) mmol/L Glucose 125 H (74-99) mg/dL Plasma Lactic Acid [place] 2.5 H* (0.7-2.0) mmol/L Calcium 7.8 L (8.4-10.2) mg/dL Total Bilirubin 1.5 H (0.2-1.3) mg/dL AST 71 H (17-59) U/L Total Protein 5.6 L (6.3-8.2) g/dL Albumin 2.9 L (3.5-5.0) g/dL 12/31/17 Range/Units 05:32 RBC 3.92 L (4.30-5.90) m/uL Hgb 12.0 L (13.0-17.5) gm/dL Hct 36.9 L (39.0-53.0) % Plt Count (150-450) k/uL Neutrophils # (1.3-7.7) k/uL Lymphocytes # (1.0-4.8) k/uL Chloride (98-107) mmol/L Glucose (74-99) mg/dL Plasma Lactic Acid [place] (0.7-2.0) mmol/L Calcium (8.4-10.2) mg/dL Total Bilirubin (0.2-1.3) mg/dL AST (17-59) U/L Total Protein (6.3-8.2) g/dL Albumin (3.5-5.0) g/dL Microbiology - Last 24 Hours (Table) 12/29/17 18:25 Urine Culture - Preliminary Urine,Clean Catch Gram Neg Bacilli 12/29/17 18:25 Blood Culture Gram Stain - Preliminary Blood Blood Culture - Preliminary Gram Neg Bacilli 12/29/17 18:15 Blood Culture Gram Stain - Preliminary Blood Blood Culture - Preliminary Gram Neg Bacilli 12/29/17 18:15 Blood Culture - Final Blood 12/29/17 18:25 Blood Culture - Final Blood
[2017-12-31] MEDS: SODIUM CHLORIDE 0.9% 1,000 ML IV SCH (06:45)
[2017-12-31 06:49] LABS: ALT 47 U/L (21-72); AST 78 U/L (17-59); Albumin 2.7 g/dL (3.5-5.0); Alkaline Phosphatase 84 U/L (38-126); Anion Gap 6 mmol/L; Blood Urea Nitrogen 16 mg/dL (9-20); Calcium 7.8 mg/dL (8.4-10.2); Carbon Dioxide 23 mmol/L (22-30); Chloride 109 mmol/L (98-107); Glucose 123 mg/dL (74-99); Magnesium 2.1 mg/dL (1.6-2.3); Potassium 3.8 mmol/L (3.5-5.1); Sodium 138 mmol/L (137-145); Total Bilirubin 1.2 mg/dL (0.2-1.3); Total Protein 5.3 g/dL (6.3-8.2)
[2017-12-31 07:22] LABS: Platelet Count 98 k/uL (150-450)
[2017-12-31 07:23] LABS: Toxic Vacuolation Present
--- NOTE | 2017-12-31 08:00 | P.PN ---
Progress Note - Text The patient is a 52-year-old gentleman who presented 2 days previous with septicemia. Presently growing greater than 100,000 gram-negative rods from his urine and blood cultures. Final identification is pending. The patient has been treated with ceftriaxone. This morning he is sitting up side of the bed. Generally feels better. Does admit to a mild headache and some nausea. His is present. Vital signs reveal that he is afebrile with a temperature 97.5 a pulse of 87 respirations 18. Blood pressure 124/75 and he is 95% saturated on room air. Lung and heart examination is clear and regular. No unusual edema. No focal neurological changes. Laboratory White count is 10.3 with hemoglobin 12 and a platelet count of 98. Electrolytes are unremarkable. Blood sugar is 123. AST still elevated at 78. Patient's lactic acid decreased down to 1.8. Impressions and plans As per urology's note. Awaiting for final identification and sensitivities on the gram-negative bacteria. I did discuss with the patient and possible discharge today or tomorrow pending those results. They will also follow up with Dr. Patrick as outpatient regarding his recent prostate biopsies.
[2017-12-31] MEDS: FAMOTIDINE 20 MG TAB PO SCH (08:24)
[2017-12-31] MEDS: MULTIVITAMINS, THERA 1 EACH TAB PO SCH (08:24)
[2017-12-31 08:28] VITALS: PULSE 83; RESP 16
[2017-12-31 12:06] VITALS: TEMP 98
[2017-12-31] MEDS: IBUPROFEN 400 MG TAB PO PRN (14:06)
[2017-12-31 16:43] VITALS: BP 132/79
--- NOTE | 2017-12-31 21:30 | P.DS ---
Providers Date of admission: 12/29/17 21:15 Attending physician: Alfredo Whitaker Primary care physician: Alfredo Santiago [facility] Course: The patient underwent a trans rectal us and prostate biopsy on 12/28/2017. He was prepared with kristofer procedure antibiotics[gentamicin and cipro. ON 12/29 he developed a high fever with sepsis , uti and dehydration. He was admitted for ivf and iv ab.He responded to iv ab and ivf. The blood and urine cultres are pending He wanted to go home today He was discharged home after his 24 hr injection. The senstivities should be ready in the am I will contact him with appropriate treatment with probable oral ab. His condition is good. His diet is regular His biopsy is pending. Patient Condition at Discharge: Good Plan - Discharge Summary New Discharge Prescriptions: No Action Pravastatin Sodium [Pravachol] 20 mg PO HS Multivitamins, Thera [Multivitamin (formulary)] 1 tab PO DAILY Discharge Medication List Multivitamins, Thera [Multivitamin (formulary)] 1 tab PO DAILY 12/29/17 [History ] Pravastatin Sodium [Pravachol] 20 mg PO HS 12/29/17 [History] Follow up Appointment(s)/Referral(s): Alfredo Santiago MD [Primary Care Provider] - 01/04/18 10:30 am (Thursday) Alfredo Whitaker MD [STAFF PHYSICIAN] - 01/13/18 3:40 pm Patient Instructions/Handouts: Sepsis (GEN), Hypotension (DC), Prostate Biopsy (DC) Activity/Diet/Wound Care/Special Instructions: call Dr Whitaker in the morning for antibiotic instructions. Discharge Disposition: HOME SELF-CARE
== END 2017-12-31 17:58 | disposition home or self-care (01) | DRG 862 ==
LOC: EC 18:04 → 6SEL 21:15
PROVIDERS: ADMIT Urology; ATTEND Urology
DX: T81.4XXA Infection following a procedure, initial encounter (principal); A41.50 Gram-negative sepsis, unspecified; E87.2 Acidosis; N39.0 Urinary tract infection, site not specified; E78.5 Hyperlipidemia, unspecified; E83.42 Hypomagnesemia; E86.0 Dehydration; I10 Essential (primary) hypertension; Z82.49 Family history of ischemic heart disease and other diseases of the circulatory system; Z88.2 Allergy status to sulfonamides
CPT/HCPCS: 36415; 71045; 74019; 80053; 81001; 82550; 82553; 83605; 83735; 84484; 85025; 85610; 85730; 87040; 87077; 87086; 87186; 93005; 96365; 96367; 96375; 96376; 99285

== ENCOUNTER → 2018-06-26 | Outpatient (CLI) | payer BC | END | disposition home or self-care (01) | LOC: LABWHC1 08:29 | PROVIDERS: ATTEND Urology | DX: R97.20 Elevated prostate specific antigen [PSA] (principal) | CPT/HCPCS: 36415; 84153 ==

== ENCOUNTER → 2018-08-14 | Outpatient (CLI) | payer BC | END | disposition home or self-care (01) | LOC: LABWHC1 08:31 | PROVIDERS: ATTEND Urology | DX: C61 Malignant neoplasm of prostate (principal) | CPT/HCPCS: 36415; 84153 ==

== ENCOUNTER → 2018-09-24 | Outpatient (CLI) | payer BC | END | disposition home or self-care (01) | LOC: LABWHC1 14:29 | PROVIDERS: ATTEND Urology | DX: C61 Malignant neoplasm of prostate (principal) | CPT/HCPCS: 36415; 84153 ==

== ENCOUNTER → 2018-11-26 | Outpatient (CLI) | payer BC ==
[2018-11-26 08:24] LABS: Basophils % (A) 1 %; Eosinophils # (A) 0.1 k/uL (0-0.7); Eosinophils % (A) 2 %; HCT 43.2 % (39.0-53.0); HGB 14.5 gm/dL (13.0-17.5); Lymphocytes # (A) 1.9 k/uL (1.0-4.8); Lymphocytes % (A) 37 %; MCH 30.9 pg (25.0-35.0); MCHC 33.6 g/dL (31.0-37.0); MCV 91.8 fL (80.0-100.0); Monocytes # (A) 0.4 k/uL (0-1.0); Monocytes % (A) 8 %; Neutrophils # (A) 2.6 k/uL (1.3-7.7); Neutrophils % (A) 51 %; Platelet Count 262 k/uL (150-450); RDW 12.7 % (11.5-15.5); WBC 5.1 k/uL (3.8-10.6)
[2018-11-26 17:15] LABS: African American GFR (CKD) 97.8 (60.0-200.0); Albumin 4.4 g/dL (3.80-4.90); Albumin/Globulin Ratio 2.1 (1.60-3.17); Anion Gap 8.1 mmol/L (4.00-12.00); Calcium 9.5 mg/dL (8.7-10.3); Carbon Dioxide 29.9 mmol/L (21.6-31.8); Chol/HDL Ratio 3.8; Globulin 2.1 g/dL (1.6-3.3); LDL Cholesterol,Calculated 109.4 mg/dL (0.0-131.0); Non-African American GFR(CKD) 84.4 (60.0-200.0); Potassium 4.4 mmol/L (3.5-5.5); Total Bilirubin 1.1 mg/dL (0.2-1.2); Total Protein 6.5 g/dL (6.2-8.2); VLDL Calculation 30.6 mg/dL (5.00-40.00)
[2018-11-26 19:52] LABS: Hemoglobin A1C 5.3 % (4.0-6.0)
== END | disposition home or self-care (01) ==
LOC: LABWHC1 06:44
PROVIDERS: ATTEND Urology
DX: E78.5 Hyperlipidemia, unspecified (principal); E11.69 Type 2 diabetes mellitus with other specified complication; C61 Malignant neoplasm of prostate; D64.9 Anemia, unspecified; R79.9 Abnormal finding of blood chemistry, unspecified
CPT/HCPCS: 36415; 80053; 80061; 83036; 84153; 85025

== ENCOUNTER → 2019-12-02 | Outpatient (CLI) | payer BC ==
[2019-12-02 09:21] LABS: Basophils % (A) 1 %; Eosinophils # (A) 0.1 k/uL (0-0.7); Eosinophils % (A) 1 %; HCT 45.5 % (39.0-53.0); Lymphocytes # (A) 1.8 k/uL (1.0-4.8); Lymphocytes % (A) 36 %; MCH 30.5 pg (25.0-35.0); MCV 92.3 fL (80.0-100.0); Mean Platelet Volume 7.3; Monocytes # (A) 0.3 k/uL (0-1.0); Monocytes % (A) 7 %; Neutrophils # (A) 2.6 k/uL (1.3-7.7); Neutrophils % (A) 53 %; Platelet Count 254 k/uL (150-450); RBC 4.93 m/uL (4.30-5.90); RDW 12.6 % (11.5-15.5); WBC 4.9 k/uL (3.8-10.6)
[2019-12-02 16:39] LABS: African American GFR (CKD) 97.1 (60.0-200.0); Albumin 4.4 g/dL (3.80-4.90); Albumin/Globulin Ratio 1.76 (1.60-3.17); Anion Gap 6.5 mmol/L (4.00-12.00); Calcium 9.6 mg/dL (8.7-10.3); Carbon Dioxide 29.5 mmol/L (21.6-31.8); Chol/HDL Ratio 4.1; Globulin 2.5 g/dL (1.6-3.3); LDL Cholesterol,Calculated 122.8 mg/dL (0.0-131.0); Non-African American GFR(CKD) 83.8 (60.0-200.0); Potassium 4.8 mmol/L (3.5-5.5); Total Bilirubin 1.1 mg/dL (0.2-1.2); Total Protein 6.9 g/dL (6.2-8.2); VLDL Calculation 32.2 mg/dL (5.00-40.00)
[2019-12-02 16:47] LABS: PSA Annual Screen 6.6 ng/mL (0.0-4.0)
[2019-12-02 19:26] LABS: Hemoglobin A1C 5.8 % (4.0-6.0)
== END | disposition home or self-care (01) ==
LOC: LABWHC1 08:22
PROVIDERS: ATTEND Nurse Practitioner Family
DX: I10 Essential (primary) hypertension (principal); E78.49 Other hyperlipidemia; R73.09 Other abnormal glucose; R53.83 Other fatigue; Z12.5 Encounter for screening for malignant neoplasm of prostate
CPT/HCPCS: 80061; 80053; 84443; 85025; 82306; 83036; 36415; G0103

== ENCOUNTER → 2020-06-01 | Outpatient (CLI) | payer BC ==
[2020-06-01 11:12] LABS: HCT 41.2 % (39.6-50.0); HGB 13.7 g/dL (13.0-17.0); MCH 30.9 pg (27.0-32.0); MCHC 33.3 g/dL (32.0-37.0); MCV 92.8 fL (80.0-97.0); Mean Platelet Volume 10.8 fL (9.5-12.2); Platelet Count 239 X 10*3/uL (140-440); RBC 4.44 X 10*6/uL (4.40-5.60); WBC 4.52 X 10*3/uL (4.50-10.00)
[2020-06-01 11:59] LABS: Hemoglobin A1C 5.5 % (4.0-6.0)
[2020-06-01 18:27] LABS: African American GFR (CKD) 97.1 (60.0-200.0); Calcium 9.2 mg/dL (8.7-10.3); Chol/HDL Ratio 3.32; LDL Cholesterol,Calculated 96.4 mg/dL (0.0-131.0); Non-African American GFR(CKD) 83.8 (60.0-200.0); Potassium 4.7 mmol/L (3.5-5.5); VLDL Calculation 19.6 mg/dL (5.00-40.00)
== END | disposition home or self-care (01) ==
LOC: LABWHC1 07:54
PROVIDERS: ATTEND Nurse Practitioner Family
DX: I10 Essential (primary) hypertension (principal); E78.2 Mixed hyperlipidemia; E11.9 Type 2 diabetes mellitus without complications
CPT/HCPCS: 36415; 80048; 80061; 83036; 85027

== ENCOUNTER → 2020-07-05 | Outpatient (CLI) | payer BC | END | disposition home or self-care (01) | LOC: LABWHC1 13:57 | PROVIDERS: ATTEND Urology | DX: C61 Malignant neoplasm of prostate (principal) | CPT/HCPCS: 36415; 84153 ==

== ENCOUNTER → 2020-09-20 | Outpatient (CLI) | payer BC | END | disposition home or self-care (01) | LOC: LABWHC1 07:03 | PROVIDERS: ATTEND Urology | DX: R97.20 Elevated prostate specific antigen [PSA] (principal) | CPT/HCPCS: 36415; 84153 ==

== ENCOUNTER → 2020-12-14 | Outpatient (CLI) | payer BC | END | disposition home or self-care (01) | LOC: LABWHC1 08:00 | PROVIDERS: ATTEND Urology | DX: C61 Malignant neoplasm of prostate (principal) | CPT/HCPCS: 36415; 84153 ==

== ENCOUNTER → 2021-01-11 | Outpatient (CLI) | payer BC ==
[2021-01-11 15:01] LABS: Basophils # (A) 0.03 X 10*3/uL (0.00-0.10); Basophils % (A) 0.6 %; Eosinophils # (A) 0.03 X 10*3/uL (0.04-0.35); Eosinophils % (A) 0.6 %; HCT 44.2 % (39.6-50.0); HGB 14.4 g/dL (13.0-17.0); Lymphocytes # (A) 1.58 X 10*3/uL (0.90-5.00); Lymphocytes % (A) 33.8 %; MCH 30.3 pg (27.0-32.0); MCHC 32.6 g/dL (32.0-37.0); MCV 93.1 fL (80.0-97.0); Mean Platelet Volume 10.3 fL (9.5-12.2); Monocytes # (A) 0.47 X 10*3/uL (0.20-1.00); Neutrophils # (A) 2.55 X 10*3/uL (1.80-7.70); Neutrophils % (A) 54.6 %; Platelet Count 275 X 10*3/uL (140-440); RBC 4.75 X 10*6/uL (4.40-5.60); WBC 4.68 X 10*3/uL (4.50-10.00)
[2021-01-11 18:55] LABS: African American GFR (CKD) 108.3 (60.0-200.0); Albumin 4.6 g/dL (3.8-4.9); Albumin/Globulin Ratio 1.81 (1.60-3.17); Anion Gap 11.9 mmol/L (4.00-12.00); BUN/Creat Ratio 19.6 Ratio (12.00-20.00); Blood Urea Nitrogen 17.8 mg/dL (9.0-27.0); Calcium 9.5 mg/dL (8.7-10.3); Carbon Dioxide 26.3 mmol/L (21.6-31.8); Chol/HDL Ratio 3.28 Ratio; Globulin 2.5 g/dL (1.6-3.3); HDL Cholesterol 59.8 mg/dL (40.00-60.00); LDL Cholesterol,Calculated 118.7 mg/dL (0.0-131.0); Non-African American GFR(CKD) 93.5 (60.0-200.0); Potassium 4.9 mmol/L (3.5-5.5); Total Bilirubin 0.8 mg/dL (0.30-1.20); Total Protein 7.1 g/dL (6.2-8.2); Triglycerides 87.5 mg/dL (0.00-149.00); VLDL Calculation 17.5 mg/dL (5.00-40.00)
== END | disposition home or self-care (01) ==
LOC: LABWHC1 08:22
PROVIDERS: ATTEND Family Medicine
DX: Z00.00 Encounter for general adult medical examination without abnormal findings (principal); E78.5 Hyperlipidemia, unspecified; E55.9 Vitamin D deficiency, unspecified
CPT/HCPCS: 36415; 80053; 80061; 82306; 82550; 83036; 85025

== ENCOUNTER → 2021-06-13 | Outpatient (CLI) | payer BC | END | disposition home or self-care (01) | LOC: LABWHC1 09:17 | PROVIDERS: ATTEND Urology | DX: R97.20 Elevated prostate specific antigen [PSA] (principal) | CPT/HCPCS: 36415; 84153 ==

== ENCOUNTER → 2022-01-09 | Outpatient (CLI) | payer BC ==
[2022-01-09 10:38] LABS: Basophils # (A) 0.02 X 10*3/uL (0.00-0.10); Basophils % (A) 0.4 %; Eosinophils # (A) 0.05 X 10*3/uL (0.04-0.35); HCT 39.9 % (39.6-50.0); HGB 13.8 g/dL (13.0-17.0); Immature Grans, Automated 0.4 %; Lymphocytes # (A) 1.84 X 10*3/uL (0.90-5.00); Lymphocytes % (A) 38.5 %; MCH 31.5 pg (27.0-32.0); MCHC 34.6 g/dL (32.0-37.0); MCV 91.1 fL (80.0-97.0); Mean Platelet Volume 10.1 fL (9.5-12.2); Monocytes % (A) 10.5 %; NRBC Per 100 WBC 0 /100 WBCS (0.0-0.0); Neutrophils # (A) 2.35 X 10*3/uL (1.80-7.70); Neutrophils % (A) 49.2 %; Platelet Count 279 X 10*3/uL (140-440); RBC 4.38 X 10*6/uL (4.40-5.60); RDW 12.3 % (11.5-14.5); WBC 4.78 X 10*3/uL (4.50-10.00)
[2022-01-09 10:53] LABS: ALT 22 U/L (10-49); AST 23 U/L (14-35); African American GFR (CKD) 95.7 (60.0-200.0); Albumin 4.3 g/dL (3.8-4.9); Albumin/Globulin Ratio 1.72 (1.60-3.17); Alkaline Phosphatase 84 U/L (41-126); Blood Urea Nitrogen 14.9 mg/dL (9.0-27.0); Calcium 9.1 mg/dL (8.7-10.3); Carbon Dioxide 27.7 mmol/L (20.0-27.5); Chloride 101 mmol/L (96-109); Chol/HDL Ratio 4.15 Ratio; Globulin 2.5 g/dL (1.6-3.3); Glucose 126 mg/dL (70-110); LDL Cholesterol,Calculated 119.4 mg/dL (0.0-131.0); Non-African American GFR(CKD) 82.6 (60.0-200.0); Potassium 4.6 mmol/L (3.5-5.5); Sodium 138 mmol/L (135-145); Total Protein 6.8 g/dL (6.2-8.2)
== END | disposition home or self-care (01) ==
LOC: LABWHC1 07:05
PROVIDERS: ATTEND Family Medicine
DX: Z00.00 Encounter for general adult medical examination without abnormal findings (principal); E78.5 Hyperlipidemia, unspecified
CPT/HCPCS: 36415; 80053; 80061; 83036; 85025

== ENCOUNTER → 2022-01-30 | Outpatient (CLI) | payer BC | END | disposition home or self-care (01) | LOC: LABWHC1 08:17 | PROVIDERS: ATTEND Urology | DX: C61 Malignant neoplasm of prostate (principal) | CPT/HCPCS: 36415; 84153 ==

== ENCOUNTER → 2022-07-31 | Outpatient (CLI) | payer BC | END | disposition home or self-care (01) | LOC: LABWHC1 15:14 | PROVIDERS: ATTEND Urology | DX: C61 Malignant neoplasm of prostate (principal) | CPT/HCPCS: 36415; 84153 ==

== ENCOUNTER → 2023-01-10 | Outpatient (CLI) | payer BC ==
[2023-01-10 14:32] LABS: Basophils # (A) 0.02 X 10*3/uL (0.00-0.10); Basophils % (A) 0.5 %; Eosinophils # (A) 0.04 X 10*3/uL (0.04-0.35); HCT 42.5 % (39.6-50.0); HGB 14.1 d/dL (13.0-17.0); Lymphocytes # (A) 1.45 X 10*3/uL (0.90-5.00); Lymphocytes % (A) 35.7 %; MCH 30.7 pg (27.0-32.0); MCHC 33.2 d/dL (32.0-37.0); MCV 92.4 FL (80.0-97.0); Mean Platelet Volume 10.1 FL (9.5-12.2); Monocytes # (A) 0.43 X 10*3/uL (0.20-1.00); Monocytes % (A) 10.6 %; NRBC Per 100 WBC 0 X 10*3/uL (0.00-0.01); Neutrophils # (A) 2.11 X 10*3/uL (1.80-7.70); Platelet Count 269 X 10*3/uL (140-440); RDW 12.1 % (11.5-14.5); WBC 4.06 X 10*3/uL (4.50-10.00)
[2023-01-10 15:23] LABS: ALT 22 U/L (10-49); AST 23 U/L (14-35); Albumin 4.5 d/dL (3.8-4.9); Alkaline Phosphatase 90 U/L (41-126); BUN/Creat Ratio 15.33 Ratio (12.00-20.00); Blood Urea Nitrogen 13.8 mg/dL (9.0-27.0); Calcium 9.6 mg/dL (8.7-10.3); Carbon Dioxide 27.5 mmol/L (21.6-31.8); Chloride 102 mmol/L (96-109); Chol/HDL Ratio 4.14 Ratio; Globulin 2.5 d/dL (1.6-3.3); Glucose 145 mg/dL (70-110); LDL Cholesterol,Calculated 134.6 mg/dL (0.0-131.0); Potassium 4.3 mmol/L (3.5-5.5); Sodium 140 mmol/L (135-145); Total Bilirubin 0.9 mg/dL (0.3-1.2)
== END | disposition home or self-care (01) ==
LOC: LABWHC1 08:32
PROVIDERS: ATTEND Family Medicine
DX: Z00.00 Encounter for general adult medical examination without abnormal findings (principal)
CPT/HCPCS: 36415; 80053; 80061; 82306; 83036; 84443; 85025

== ENCOUNTER → 2023-01-16 | Outpatient (CLI) | payer BC | END | disposition home or self-care (01) | LOC: LABWHC1 06:55 | PROVIDERS: ATTEND Family Medicine | DX: R73.9 Hyperglycemia, unspecified (principal) | CPT/HCPCS: 36415; 83036 ==

== ENCOUNTER → 2023-02-06 | Outpatient (CLI) | payer BC | END | disposition home or self-care (01) | LOC: LABWHC1 08:05 | PROVIDERS: ATTEND Urology | DX: C61 Malignant neoplasm of prostate (principal) | CPT/HCPCS: 36415; 84153 ==

== ENCOUNTER → 2023-03-23 | Outpatient (CLI) | payer BC | END | disposition home or self-care (01) | LOC: LABWHC1 08:19 | PROVIDERS: ATTEND Urology | DX: C61 Malignant neoplasm of prostate (principal) | CPT/HCPCS: 36415; 84153 ==

== ENCOUNTER → 2023-06-05 | Outpatient (CLI) | payer BC | END | disposition home or self-care (01) | LOC: LABWHC1 06:48 | PROVIDERS: ATTEND Urology | DX: R97.20 Elevated prostate specific antigen [PSA] (principal) | CPT/HCPCS: 36415; 84153 ==

== ENCOUNTER → 2023-09-18 | Outpatient (CLI) | payer BC | END | disposition home or self-care (01) | LOC: LABWHC1 06:54 | PROVIDERS: ATTEND Urology | DX: R97.20 Elevated prostate specific antigen [PSA] (principal) | CPT/HCPCS: 36415; 84153 ==

== ENCOUNTER → 2023-12-18 | Outpatient (CLI) | payer BC | END | disposition home or self-care (01) | LOC: LABWHC1 12:33 | PROVIDERS: ATTEND Urology | DX: R97.20 Elevated prostate specific antigen [PSA] (principal) | CPT/HCPCS: 36415; 84153 ==

== ENCOUNTER → 2024-03-11 | Outpatient (CLI) | payer BC | END | disposition home or self-care (01) | LOC: LABWHC1 11:19 | PROVIDERS: ATTEND Urology | DX: R97.20 Elevated prostate specific antigen [PSA] (principal) | CPT/HCPCS: 36415; 84153 ==

== ENCOUNTER → 2024-07-15 | Outpatient (CLI) | payer BC | END | disposition home or self-care (01) | LOC: LABWHC1 14:57 | PROVIDERS: ATTEND Urology | DX: R97.20 Elevated prostate specific antigen [PSA] (principal) | CPT/HCPCS: 36415; 84153 ==